=== PATIENT | female | born 1980 | race Caucasian/White ===

== ENCOUNTER → 2018-09-09 | Emergency (ER) | payer OTHER ==
[~2018-09-09] VITALS: Ht 170.2 cm; Wt 77.1 kg
== END | disposition home or self-care (01) ==
LOC: ER 22:11
DX: S91.242A Puncture wound with foreign body of left great toe with damage to nail, initial encounter (principal); S92.422A Displaced fracture of distal phalanx of left great toe, initial encounter for closed fracture; W26.8XXA Contact with other sharp object(s), not elsewhere classified, initial encounter; Y93.89 Activity, other specified; Y92.89 Other specified places as the place of occurrence of the external cause; Y99.8 Other external cause status